=== PATIENT | female | born 1945 | race Caucasian/White ===

== ENCOUNTER 2019-09-16 14:46 | Outpatient (CLI) | payer MEDICARE, OTHER, SELFPAY ==
--- NOTE | ~2019-09-16 | DEXA_ITS ---
Bone Density Report Name: Suzan dHez Age: 74 Sex: Female Ethnicity: White Date of : 1945 Indication: postmenopausal; height loss; prior fracture; cancer; Referring Provider: WILMAR CULLEN Study: Bone densitometry was performed. Exam Date: September 16, 2019 Accession number: [id number] Bone Density: Region BMD T-score Z-score Classification AP Spine (L1-L4) 1.052 0.0 2.5 Normal World Health Organization criteria for BMD impression classify patients as: Normal (T-score at or above -1.0), Osteopenia (T-score between -1.0 and -2.5), or Osteoporosis (T-score at or below -2.5). Previous Exams: Region Exam Age BMD T-score BMD Change BMD Change Date g/cm2 vs Baseline vs Previous AP Spine(L1-L4) 09/16/2019 74 1.052 0.0 -0.040(-3.7%)* -0.040(-3.7%)* 08/23/2015 70 1.092 0.4 *Denotes significance at 95% confidence level, LSC for AP Spine = 0.022 g/cm2 Clinical Information Provided by Patient: Has had a low trauma fracture Has used the following medications: Calcium Has the following medical conditions: Cancer Patient maximum height was 67.5 Menopause Age: 48 Drinks caffeinated beverages Onset of menses at age 10 Number of children 5 Impression: The patient has normal bone mass. The patient has risk factors, including: previous fracture. The BMD for the AP Spine(L1-L4) decreased, changing by -3.7% since the last DXA exam. Discussion: LOW RISK OF FRACTURE; BONE DENSITY IS WELL ABOVE THE MINIMUM DESIRABLE LEVEL AND ABOVE AVERAGE FOR AGE AND SEX AT ALL SKELETAL SITES TESTED. This person's bone density is above expected limits for age and sex. This is rarely clinically significant, but should be pursued if there are significant musculoskeletal complaints. The patient should follow a healthful lifestyle (good nutrition with adequate calcium and vitamin D, and appropriate weight-bearing exercise). Follow-Up: Consider repeating this study in 3 to 4 years to reassess this patient's status, or sooner if there is some new clinical indication. Reported by: SAMANTHA on 09/16/2019 3:45:00 PM. Reviewed, dictated and finalized at location AShelli CLARK
--- NOTE | ~2019-09-16 | MM_ITS ---
EXAMINATION: MM screening sveta LT w otto HISTORY: Screening mammogram TECHNIQUE: Craniocaudal and mediolateral oblique 3-D tomosynthesis images were obtained and synthetic 2-D images were generated. CAD analysis was submitted and interpreted. COMPARISON: Comparison to multiple prior studies sequentially, with oldest reviewed study dated 05/16. BREAST PARENCHYMAL COMPOSITION: There are scattered areas of fibroglandular density. FINDINGS: There is no evidence of suspicious mass, calcification, or architectural distortion to sugg est malignancy in either breast. There has been no suspicious interval change. IMPRESSION: 1. No mammographic evidence of malignancy. 2. Recommend routine screening mammography in one year. BI-RADS Category 1: Negative Reviewed, dictated and finalized at location A. THEATER EXPERT
== END 2019-09-16 14:47 | disposition home or self-care (01) ==
PROVIDERS: PCP Emergency Medicine; Visit Provider Emergency Medicine
DX: Z12.31 Encounter for screening mammogram for malignant neoplasm of breast (principal); Z78.0 Asymptomatic menopausal state
CPT/HCPCS: 77063; 77067; 77080

== ENCOUNTER 2020-01-11 13:30 | Emergency (ER) | payer MEDICARE, OTHER, SELFPAY ==
[2020-01-11 13:45] VITALS: BP 138/80; PULSE 65; RESP 16; TEMP 36.5; O2SAT 98
--- NOTE | 2020-01-11 13:52 | ED.FEMALEGU ---
HPI - Female Genitourinary General Chief complaint: Urogenital-Female Stated complaint: possible uti Time Seen by Provider: 01/11/20 13:56 Source: patient and RN notes reviewed Mode of arrival: ambulatory Limitations: no limitations History of Present Illness HPI Narrative: This is a 74 years old female presents to the office for an evaluation of possible UTI. Onset this morning. Symptoms include urinary frequency, pain, and tinge of blood when she wiped. Denies fever, vomiting, back pain, or vaginal discharge. Symptoms reminiscent her previous UTI she had about 4 to 5 years ago. She admitted drinking lots of coffee. Related Data Home Medications Medication Instructions Recorded Confirmed latanoprost 0.005 % eye drops See Rx Instructions EACH EYE DAILY 08/24/19 01/11/20 Allergies Allergy/AdvReac Type Severity Reaction Status Date / Time No Known Allergies Allergy Verified 01/11/20 13:36 Review of Systems Review of Systems: Narrative: CONSTITUTIONAL: Denies fever or feeling ill CARDIOVASCULAR: Denies chest pain RESPIRATORY: Denies dyspnea, cough GASTROINTESTINAL: Denies abdominal pain, nausea, vomiting GENITOURINARY:Denies vaginal discharge SKIN: Denies rash MUSCULOSKELETAL: Denies acute back pain NEUROLOGIC: Denies lightheaded All other systems reviewed are negative, except as documented in HPI. 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 There is no relevant family history pertinent to the presenting complaint. Exam Narrative: Exam Narrative: GENERAL: This is a well-nourished, well-developed patient, in no apparent distress. CARDIOVASCULAR: Regular rate and rhythm without murmurs, gallops, or rubs. RESPIRATORY: Clear to auscultation. Breath sounds equal bilaterally. No wheezes, rales, or rhonchi. GASTROINTESTINAL: Abdomen soft, non-tender, nondistended. Bowel sounds are active. No hepato-splenomegaly, or palpable masses. No guarding. SKIN: warm, intact with no suspicious lesions or rash, good texture and turgor. NEURO: awake, alert, and oriented to person, place and time. There were no obvious focal neurologic abnormalities. Steady gait BACK: No flank tenderness. [place] Coma Scale Eye Opening: Spontaneous 4 [place] Coma Scale Motor: Obeys Commands 6 [place] Coma Scale Verbal: Oriented 5 MDM - Female Genitourinary MDM Narrative Medical decision making narrative: Discharge instructions reviewed with patient, as well as provided in writing per nursing staff. The instructions also include specific and strict return/GO TO THE ER as well as f/u information. All questions have been answered, and the patient deny any further questions with discharge and discharge plan. Differential Diagnosis Differential diagnosis: Likely urinary tract infection, cervicitis, vaginitis and cystitis Lab Data Attestation: I reviewed the patient's lab results. Critical Care Time Critical Care Time Critical Care Time: No Discharge Plan Discharge Clinical Impression: Cystitis Patient Disposition: Home, Self-Care Condition: Stable
== END 2020-01-11 14:20 | disposition home or self-care (01) ==
PROVIDERS: Emergency Provider Nurse Practitioner; PCP Emergency Medicine
DX: N30.90 Cystitis, unspecified without hematuria (principal); E78.5 Hyperlipidemia, unspecified; Z85.3 Personal history of malignant neoplasm of breast; Z85.828 Personal history of other malignant neoplasm of skin; Z96.643 Presence of artificial hip joint, bilateral
CPT/HCPCS: 81003; 87086; 99213; G0463

== ENCOUNTER 2021-03-22 06:53 | Outpatient (CLI) | payer MEDICARE, OTHER, SELFPAY ==
--- NOTE | 2021-03-22 | ECG_ITS ---
Measurements Intervals [place] Rate: 70 P: 76 MA: 212 QRS: 36 QRSD: 96 T: 51 QT: 388 QTc: 421 Interpretive Statements SINUS RHYTHM WITH FIRST DEGREE AV BLOCK POSSIBLE LEFT ATRIAL ENLARGEMENT DELAYED PRECORDIAL R/S TRANSITION ABNORMAL ECG Electronically Signed On 03-22-2021 9:00:20 CDT by Imer Wright D.O.
--- NOTE | ~2021-03-22 | CT_ITS ---
EXAMINATION: CT LE RT wo con DATE: 03/22/2021 08:05 INDICATION: Unilateral primary osteoarthritis, right knee. TECHNIQUE: Computed tomography (CT) of the right lower limb was performed without intravenous contras t. Automated exposure control and iterative reconstruction technique were employed. The dose-length p roduct was 1786.80 mGy-cm. COMPARISON: Right knee radiographs 12/30/2020 FINDINGS: There is a total right hip arthroplasty in near-anatomic alignment. No periprosthetic lucen cy to suggest loosening or infection. No fracture. Right knee demonstrates severe osteoarthritis of l ateral compartment, mild osteoarthritis of medial compartment, and moderate osteoarthritis of patello femoral compartment. There is a small knee joint effusion. There is a moderate-sized Hernandez's cyst. IMPRESSION: 1. Severe right knee osteoarthritis. 2. Small right knee joint effusion. 3. Moderate-sized right-sided Hernandez's cyst. 4. Total right hip arthroplasty in near-anatomic alignment. Reviewed, dictated and finalized at location A.
[2021-03-22 08:32] LABS: Hematocrit 39.6 % (37.0-47.0); Hemoglobin 12.9 g/dL (12.0-15.0)
[2021-03-22 08:42] LABS: Albumin Level 4.2 g/dL (3.5-5.1); Estimated Glomerular Filt Rate > 60; Glucose 84 mg/dL (65-110)
[2021-03-22 09:40] LABS: Urine Cotinine NEGATIVE
[2021-03-22 11:57] LABS: Hemoglobin A1C 5.2 % (<5.7)
== END 2021-03-22 06:54 | disposition home or self-care (01) ==
PROVIDERS: PCP Emergency Medicine; Visit Provider Orthopaedic Surgery
DX: Z01.818 Encounter for other preprocedural examination (principal); M17.11 Unilateral primary osteoarthritis, right knee; M25.461 Effusion, right knee; M71.21 Synovial cyst of popliteal space [Baker], right knee; R94.31 Abnormal electrocardiogram [ECG] [EKG]; E78.5 Hyperlipidemia, unspecified; Z96.651 Presence of right artificial knee joint; Z85.3 Personal history of malignant neoplasm of breast; Z85.828 Personal history of other malignant neoplasm of skin
CPT/HCPCS: 73700; 80307; 82040; 82565; 82947; 83036; 85014; 85018; 93005

== ENCOUNTER 2021-08-16 10:35 | Outpatient (CLI) | payer MEDICARE, OTHER, SELFPAY ==
--- NOTE | ~2021-08-16 | MM_ITS ---
EXAMINATION: MM screening sveta LT w otto HISTORY: Screening left mammogram, history of right mastectomy TECHNIQUE: Craniocaudal and mediolateral oblique 3-D tomosynthesis images were obtained and synthetic 2-D images were generated. CAD analysis was submitted and interpreted. COMPARISON: 09/16/2019, 06/20/2017, 08/17/2015 BREAST PARENCHYMAL COMPOSITION: There are scattered areas of fibroglandular density. FINDINGS: There is no evidence of suspicious mass, calcification, or architectural distortion to sugg est malignancy. There has been no suspicious interval change. IMPRESSION: 1. No mammographic evidence of malignancy. 2. Recommend routine screening mammography in one year. BI-RADS Category 1: Negative Reviewed, dictated and finalized at location A. L ROASTER
== END 2021-08-16 10:36 | disposition home or self-care (01) ==
LOC: ANHIMG 10:36
PROVIDERS: PCP Emergency Medicine; Visit Provider Emergency Medicine
DX: Z12.31 Encounter for screening mammogram for malignant neoplasm of breast (principal)
CPT/HCPCS: 77063; 77067

== ENCOUNTER 2022-08-03 07:35 | Observation (INO) | payer MEDICARE, OTHER, SELFPAY ==
--- NOTE | ~2022-08-03 | XR_ITS ---
AP and lateral views of the left hip Clinical history: Pain Findings: No acute fracture or dislocation is seen. Left hip arthroplasties in place. No hardware com plication evident. Soft tissues are unremarkable. Impression: No acute abnormality is seen. Left hip arthroplasty. Reviewed, dictated and finalized at location . LINER Impression: No acute abnormality is seen. Left hip arthroplasty.
--- NOTE | ~2022-08-03 | CT_ITS ---
EXAMINATION: CT brain wo con DATE: 08/03/2022 10:51 INDICATION: Fall. TECHNIQUE: Computed tomography (CT) of the head was performed without intravenous contrast. The mA wa s adjusted according to patient size. Iterative reconstruction technique was employed. Exam dose: 60 5.33 mGy-cm total exam DLP. COMPARISON: None FINDINGS: Basilar artery and bilateral carotid siphon internal carotid artery and middle cerebral art chad calcifications are noted. Is nonspecific diminished attenuation of the cerebral white matter, lik jose due to chronic small vessel ischemic changes. No intracranial mass lesion or hemorrhage or recent cerebrovascular accident. No midline shifts or ma ss effect. No subdural or epidural hematoma. The mastoid air cells and included paranasal sinuses are normally developed and aerated. No fracture or bone destruction of the cranial vault. IMPRESSION: No skull fracture or acute intracranial abnormality Cerebral atherosclerosis and chronic small vessel ischemic changes of the cerebral white matter Reviewed, dictated and finalized at Location A. Reviewed, dictated and finalized at location B. RO[facility] [employer] IMPRESSION: No skull fracture or acute intracranial abnormality Cerebral atherosclerosis and chronic small vessel ischemic changes of the cereb ral white matter
--- NOTE | ~2022-08-03 | CT_ITS ---
EXAMINATION: CT hip LT wo con DATE: 08/03/2022 13:27 INDICATION: Left hip pain post fall TECHNIQUE: High resolution computed tomography (CT) of the left hip was performed without intravenous contrast. Additional sagittal and coronal reconstructions were performed. Automated exposure control and iterative reconstruction technique were employed. The dose-length product was 492.74 mGy-cm. COMPARISON: 08/03/2022 FINDINGS: Left total hip arthroplasty which appears well seated in near-anatomic alignment with no periprosthet ic lucency to suggest loosening. There is a minimally displaced mildly comminuted fractures of the le ft inferior pubic ramus. There is suggestion of an additional nondisplaced fracture at the lateral as pect of the superior pubic ramus however assessment dislocation is significantly limited by streak ar tifact from the hip arthroplasty. Multiple diverticula along the visualized portion of the sigmoid co gisele without adjacent inflammatory change to suggest diverticulitis. No pathologically enlarged left p elvic or inguinal lymphadenopathy. IMPRESSION: 1. Only displaced mildly comminuted fractures along the left inferior pubic ramus. 2. Possible nondisplaced fracture at the lateral aspect of the left superior pubic ramus evaluation o f which is significantly limited by metallic streak artifact from a left total hip arthroplasty. Reviewed, dictated and finalized at location A. ON FARMER IMPRESSION: 1. Only displaced mildly comminuted fractures along the left inferior pubic lesley us. 2. Possible nondisplaced fracture at the lateral aspect of the left superior pu bic ramus evaluation of which is significantly limited by metallic streak artif act from a left total hip arthroplasty.
[2022-08-03 07:35] VITALS: BP 164/87; PULSE 70; RESP 16; TEMP 36.8; O2SAT 99
--- NOTE | 2022-08-03 09:31 | ED.FALL ---
HPI - Fall General Chief Complaint: Fall Stated Complaint: fall, left hip pain Time Seen by Provider: 08/03/22 07:38 History of Present Illness HPI Narrative: Patient is a 77-year-old female presenting after a fall. Patient states that she was walking in her house slippers when she tripped on a cord and fell onto her left hip. States that she was unable to brace her fall in time so her full weight landed on that hip. States that she did strike her head. She denies losing consciousness. No neck or back pain. States that her was able to help her get to her knees but she was unable to stand due to the severe pain so EMS was called. Patient states that she is able to lift her left leg and externally and internally rotated but weightbearing causes severe pain. She denies further injuries or complaints. No anticoagulants or antiplatelets. Related Data Home Medications Medication Instructions Recorded Confirmed latanoprost 0.005 % eye drops See Rx Instructions ophthalmic 08/24/19 08/03/22 (eye) DAILY ICaps AREDS 1 cap PO DAILY 08/03/22 08/03/22 [place]-3 Fish Oil 1 cap PO DAILY 08/03/22 08/03/22 Osteo Bi-Flex 1 cap PO DAILY 08/03/22 08/03/22 ferrous sulfate 28 mg iron tablet 14 mg PO DAILY 08/03/22 08/03/22 vit B complex with C #[id number] 1 cap PO DAILY 08/03/22 08/03/22 Allergies Allergy/AdvReac Type Severity Reaction Status Date / Time No Known Allergies Allergy Verified 03/20/22 10:44 Review of Systems Review of Systems: All systems reviewed & are unremarkable except as noted in HPI and below PMFSH Past Medical History Medical History Cancer of right breast (1989) Chronic sinusitis Exudative macular degeneration Glaucoma Hyperlipidemia Surgical History Surgical History (Updated 08/03/22 @ 16:16 by Mandy Newman PA-C) History of bilateral hip arthroplasty (2011) History of right mastectomy (1989) Status post surgical removal of 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 Family History Family History Sibling Family history of malignant neoplasm Mother Family history of congestive heart failure, Onset Age: 87 Grandparent Arthritis Other Diabetes mellitus Family history of alcoholism Social History Social History Social History: Patient drinks three cups of caffeine daily. Exercises 3-4 times per week (water aerobics). Surrogate medical decision maker: Nabil Hopson, spouse. Code status: Full code. Smoking status: Never smoker Second hand tobacco smoke exposure: No Alcohol intake: current Drinks per week: 2 Substance use: never Substance use type: does not use Lack of Transportation: No Lack of Food: Never True Current Housing: I Have Housing Concerned About Future Housing: No Difficulty Paying Gas/Electric Bills: No Difficulty Paying for Meds: No Currently Unemployed: No Education: Master's Degree or Higher Difficulty w/ Childcare or Family Care: No Additional living arrangements comments: Lives in [place] with spouse. Has 5 children. Occupation/Education: retired Spiritual care concerns: No Exam Narrative: GENERAL: Well-appearing, well-nourished, and in no acute distress. HEAD: Normocephalic, atraumatic. EYES: PERRLA and EOMI. ENT: Nares clear, no rhinorrhea or epistaxis. Mucous membranes moist. NECK: Supple. CHEST: Clear to auscultation. No respiratory distress. HEART: Regular rate and rhythm. No murmur heard. Normal peripheral pulses. ABDOMEN: Soft, nontender, nondistended, normal active bowel sounds. EXTREMITIES: Normal range of motion. No edema. DP/PT pulse 2+ bilaterally, no sensory deficits, pt able to extend/flex left hip as well as externally/internally rotate SKIN: Warm, dry, no rash. NEURO: No focal deficits. Alert and orient
[2022-08-03] MEDS: ACETAMINOPHEN 500 MG TABLET 1000 MG PO (09:35)
[2022-08-03] MEDS: IBUPROFEN 600 MG TABLET PO (09:36)
[2022-08-03 11:12] VITALS: BP 154/74; PULSE 75; RESP 18; O2SAT 97
[2022-08-03] MEDS: oxyCODONE HCL (*CRX) 5 MG TAB IR 2.5 MG PO (13:00)
[2022-08-03 13:21] LABS: Influenza A QL RT-PCR Negative (Negative); Influenza B QL RT-PCR Negative (Negative); RSV RNA, RT-PCR Negative (Negative); SARS-CoV-2 RNA PCR Negative
--- NOTE | 2022-08-03 14:00 | PM.IMHP ---
H&P: HPI History of Present Illness Date/Time: 08/03/22 14:00 Chief Complaint: Fall. Narrative: This is a very pleasant 77-year-old female who presented to the emergency department via EMS from home for evaluation after a fall. The following history is obtained from the patient. She was in her usual state of health when she went to bed last night. This morning at about 06:30 she was walking into her sun room when she incidentally tripped over the computer cord which caused her to fall hard onto her left side. She was unable to get herself up and her was not able to help her up either due to pain in the left hip area. She hit her head on a side table but there was no loss of consciousness. There were no antecedent symptoms prior to the fall. Vital signs were stable on arrival to the ED though blood pressures have been a bit high in the 150s to 160s systolic. Brain CT showed no acute fracture or intracranial abnormality. Left hip x-ray showed an intact left hip arthroplasty with no acute abnormality noted. Attempts were made to ambulate the patient with a walker however she was unable to do so given severe, aching pain in the left hip, groin, and pelvic region. A subsequent CT of the hip (limited by metallic streak artifact from left hip arthroplasty) showed a mildly displaced comminuted fracture of the left inferior pubic ramus and a possible nondisplaced fracture at the lateral aspect of the left superior pubic ramus. She is being admitted in this setting for pain control and PT/OT consult. Review of Systems Review of Systems: Twelve systems were reviewed. No fever, chills, or sweats. No recent cold or flu symptoms. She has chronic issues with her sinuses which are unchanged. No chest pain or shortness of breath. No nausea, vomiting, or diarrhea. No dysuria. Except as documented, all other systems were reviewed and are negative. [facility] Past Medical History Medical History Cancer of right breast (1989) Chronic sinusitis Exudative macular degeneration Glaucoma Hyperlipidemia Surgical History Surgical History (Updated 08/03/22 @ 16:16 by Mandy Newman PA-C) History of bilateral hip arthroplasty (2011) History of right mastectomy (1989) Status post surgical removal of 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 Family History Family History Sibling Family history of malignant neoplasm Mother Family history of congestive heart failure, Onset Age: 87 Grandparent Arthritis Other Diabetes mellitus Family history of alcoholism Social History Social History Social History: Patient drinks three cups of caffeine daily. Exercises 3-4 times per week (water aerobics). Surrogate medical decision maker: Nabil Hopson, spouse. Code status: Full code. Smoking status: Never smoker Second hand tobacco smoke exposure: No Alcohol intake: current Drinks per week: 2 Substance use: never Substance use type: does not use Lack of Transportation: No Lack of Food: Never True Current Housing: I Have Housing Concerned About Future Housing: No Difficulty Paying Gas/Electric Bills: No Difficulty Paying for Meds: No Currently Unemployed: No Education: Master's Degree or Higher Difficulty w/ Childcare or Family Care: No Additional living arrangements comments: Lives in [place] with spouse. Has 5 children. Occupation/Education: retired Spiritual care concerns: No Meds Home Medications and Allergies Home Medications Medication Instructions Recorded Confirmed Type latanoprost 0.005 % eye drops See Rx Instructions ophthalmic 08/24/19 08/03/22 History (eye) DAILY ICaps AREDS 1 cap PO DAILY 08/03/22 08/03/22 History [place]-3 Fish Oil 1 cap PO DAILY 08/03/22 08/03/22 History Osteo Bi-Flex 1 cap PO
[2022-08-03 14:03] VITALS: BP 156/85; PULSE 75; RESP 18; O2SAT 97
[2022-08-03 15:50] VITALS: BMI 27.2
--- NOTE | 2022-08-03 15:57 | PCPTNOTE ---
Pt recently admitted. Waiting on full work up and Ortho consult prior to PT evaluation. Will follow.
[2022-08-03 16:09] VITALS: BP 150/88; PULSE 78; RESP 14; TEMP 36.6; O2SAT 98
[2022-08-03 16:11] VITALS: BP 150/88; PULSE 78; RESP 14; TEMP 36.6; O2SAT 98
[2022-08-03 16:35] VITALS: BMI 29.4
[2022-08-03] MEDS: ACETAMINOPHEN 325 MG TABLET 650 MG PO (18:16)
[2022-08-03 20:47] VITALS: BP 146/78; PULSE 72; RESP 18; TEMP 36.6; O2SAT 97
[2022-08-03] MEDS: HYDROcodone/acetaminophen (*CRX) 5-325 MG TABLET 1 TAB PO (20:47)
[2022-08-04] MEDS: oxyCODONE HCL (*CRX) 2.5 MG TAB IR PO (02:54)
[2022-08-04 06:00] VITALS: BP 162/87; PULSE 80; RESP 18; TEMP 36.5; O2SAT 99
[2022-08-04 07:01] LABS: Anion Gap 3 mmol/L (8-16); Blood Urea Nitrogen 21 mg/dL (7-17); Calcium 8.4 mg/dL (8.4-10.2); Carbon Dioxide 27 mmol/L (22-30); Chloride 108 mmol/L (98-107); Estimated CRCL calculation 72 ml/min; Estimated Glomerular Filt Rate > 60; Glucose 100 mg/dL (65-110); Potassium 3.4 mmol/L (3.4-5.0); Sodium 138 mmol/L (137-145)
[2022-08-04 08:28] VITALS: O2SAT 92
[2022-08-04] MEDS: ENOXAPARIN 40 MG/0.4 ML SYRINGE SUB-Q (08:48)
[2022-08-04] MEDS: OPTI-GEN TAB 1 TABLET PO (08:49)
[2022-08-04] MEDS: OMEGA 3 POLYUNSAT FATTY ACIDS 1 GM CAP PO (08:49)
[2022-08-04] MEDS: VITAMIN B COMPLEX/VIT C CAPSULE 1 EACH PO (08:50)
[2022-08-04] MEDS: ACETAMINOPHEN 325 MG TABLET 650 MG PO (09:46)
--- NOTE | 2022-08-04 12:25 | PCOTNOTE ---
Awaiting ortho consult prior to OT evaluation. Will follow.
--- NOTE | 2022-08-04 13:56 | PCPTNOTE ---
Awaiting ortho consult for weight bearing status recommendations, will check on patient tomorrow.
[2022-08-04 14:00] VITALS: BP 134/78; PULSE 75; RESP 20; TEMP 36.4; O2SAT 96
--- NOTE | 2022-08-04 15:31 | PM.CNOR ---
Assessment and Plan Assessment and plan (1) Fracture of multiple pubic rami: Code(s): S32.599A - Other specified fracture of unspecified pubis, initial encounter for closed fracture Status: Acute Assessment and Plan: patient is a 77-year-old female who fell hard onto her left side yesterday had severe groin pain medially and could not bear weight was brought to the emergency room had x-rays obtained which showed left hip replacement which looks fine. She has a history of bilateral hip replacements approximately 10 years ago which had been doing fine. CT scan the left hip demonstrated minimally displaced fractures of inferior and superior pubic rami on the left. No evidence of periprosthetic fracture at the left proximal femur or acetabulum. Components look well fixed and radiographically everything looks fine. She is alert and oriented and is sitting up on the side of bed. She was admitted because she had too much pain to ambulate. She continues to complain of severe pain when she tries to move the leg around or tries to turn with her weight on left leg. She has Tylenol [place] and oxycodone ordered at her last pain medication of any of these was 6:00 p.m. yesterday almost 24 hours ago. A ask her how much pain she has in at rest she has no pain so she does not receive any p.r.n. medication. I have discontinued the p.r.n. options and have ordered scheduled Tylenol 1000 mg q.6 hours and oxycodone 5 mg q.6 hours to be given together and she will notify the nurse if this is not give her adequate pain relief and she can refuse it if she feels it is too strong and could ask for a milder dose. We institute anti constipation medication. She has no personal or family history of DVT she is on Lovenox 40 mg daily. Patient states she has history of osteopenia but does not take calcium supplementation for vitamin-D currently. We will check a 25 hydroxy vitamin-D level and supplement at this if it is low and I have recommended that she start taking a calcium +D tablet or other formulation twice daily pin take this for life. Her last bone density was 5 years ago I recommend repeating this on an outpatient basis. She would like to go home. She realizes that she will need to be able to transfer from sitting to standing and be able to walk several steps with a walker and we will have her be 50% weight-bearing on the left and when she is able to accomplish these goals I think she can go home with her fairly easily. She seems otherwise very able bodied and quite alert and oriented. We will see how the pain medication controls her symptoms and see how she progresses over the next 1-2 days. If she is unable to transfer with minimal assist and she may need to be placed in a rehab facility for a period of time until she has a little bit more fracture healing and associated improved comfort allowing her to transfer independently enough that she can be at home. I have reviewed her plain x-rays and her CT scan personally. The total hip replacement is without radiographic complication. 50 minutes were spent in total care of this patient with the majority of this time spent in [id number] discussion with patient and her . 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 Family History Family History Sibling Family history of malignant neoplasm Mother Family history of kamlesh
[2022-08-04] MEDS: oxyCODONE HCL (*CRX) 5 MG TAB IR PO ×2 (16:13→21:35)
[2022-08-04] MEDS: ACETAMINOPHEN 500 MG TABLET 1000 MG PO ×2 (16:13→21:35)
--- NOTE | 2022-08-04 16:14 | PM.IMPN ---
Progress Note: A&P Assessment and Plan (1) Fall from ground level: Code(s): W18.30XA - Fall on same level, unspecified, initial encounter Status: Acute Assessment and Plan: Mechanical fall (pt tripped over a computer cord). Patient denies antecedent symptoms prior to the fall. Implement fall precautions (2) Fracture of left inferior pubic ramus: Code(s): S32.592A - Other specified fracture of left pubis, initial encounter for closed fracture Status: Acute Assessment and Plan: CT shows a displaced mildly comminuted fracture along the left inferior pubic ramus and possible nondisplaced fracture of the lateral aspect of the left superior pubic ramus. Patient does have a history of bilateral hip replacements, no evidence of periprosthetic fracture. appreciate orthopedic surgery recommendations. Continue with 50% weight-bearing on the left. Analgesics as needed. Appreciate PT / OT evals. May need to consider rehab prior to return home. (3) Elevated blood pressure reading: Code(s): R03.0 - Elevated blood-pressure reading, without diagnosis of hypertension Status: Acute Assessment and Plan: Blood pressure is elevated on admission, likely due to pain. Improving at this time with last BP 134/78. Patient is not on antihypertensives. Monitor BP trends (4) Osteopenia: Code(s): M85.80 - Other specified disorders of bone density and structure, unspecified site Status: Acute Assessment and Plan: Patient with history of osteopenia. Vitamin-D levels are pending. Recommend outpatient DEXA (5) Glaucoma: Code(s): H40.9 - Unspecified glaucoma Status: Chronic Assessment and Plan: No acute issues. Continue latanoprost. Subjective Date/time seen: 08/04/22 16:14 Interval history: Date of service: 08/04/2022 Suzan Hopson is a 77-year-old female with a history of breast cancer, macular degeneration, glaucoma, hyperlipidemia who is seen in follow-up for pubic rami fracture. She states that she is doing fairly well. When she is resting her pain is well controlled. She did attempt to get out of bed and pivot to the bedside commode. States that she was not able to do this due to a heavy feeling in her left leg and pain. she feels that if she could stand up straight and have the commode placed behind her she would have better luck than with trying to put it. She is fairly comfortable with standing but when turning her pain increased to 7-8/10. When she is at rest, she has no pain. She denies any additional concerns. No dizziness or lightheadedness. No shortness of breath, cough, or chest pain. States she had of loose bowel movement yesterday but no stools today. Denies urinary symptoms. Endorses somewhat poor appetite but is eating. Review of Systems Review of Systems: All systems reviewed & are unremarkable except as noted in HPI and below Exam Narrative: General: Well-nourished well-appearing 77-year-old female, sitting up in bed, comfortable, NARD Neuro: awake, alert and oriented x4, speech clear, no focal neuro deficits noted HEENMT: normocephalic, atraumatic, EOMI, sclerae anicteric Respiratory: clear to auscultation bilaterally, nonlabored breathing Cardio: regular rate, regular rhythm with S1-S2 Abdomen: nondistended, normoactive bowel sounds, soft, nontender to palpation Extremities: left hip is nontender to palpation, BLE without edema, erythema, or tenderness to palpation, DP pulses 2+ bilaterally, able to wiggle toes bilaterally, sensation intact Skin: no rashes or lesions, warm and dry Psych: appropriate mood and affect, judgment and insight intact Objective Data Vital Signs Vital Signs: Vital Signs - 24 hr 08/03/22 17:52 08/03/22 20:47 08/03/22 20:00 Temperature 97.8 F Pulse Rate 72 Respiratory Rate 18 Blood Pressure 146/78 H Pulse Oximetry 97 Oxygen Delivery Room Air Room Air
[2022-08-04] MEDS: SENNA/DOCUSATE SODIUM TABLET 2 TAB PO (16:37)
[2022-08-04] MEDS: LATANOPROST 0.005% OP SOLN 2.5 ML BTL 1 DROP EACH EYE (21:35)
[2022-08-04 22:00] VITALS: BP 140/89; PULSE 74; RESP 18; TEMP 36.8; O2SAT 96
[2022-08-05] MEDS: ACETAMINOPHEN 500 MG TABLET 1000 MG PO ×4 (02:46→20:40)
[2022-08-05] MEDS: oxyCODONE HCL (*CRX) 5 MG TAB IR PO ×4 (02:46→20:40)
[2022-08-05 06:00] VITALS: BP 141/79; PULSE 78; RESP 18; TEMP 36.5; O2SAT 96
[2022-08-05 06:38] LABS: Hematocrit 29.2 % (37.0-47.0); Hemoglobin 9.6 g/dL (12.0-15.0); Mean Corpuscular HGB Conc 32.9 g/dl (32-36); Mean Corpuscular Volume 94.2 fl (80-100); Mean Platelet Volume 8.9 fl (7.4-10.4); Platelet Count Result 139 k/mm3 (150-375); Red Cell Distribution Width 15.9 % (11.5-14.5); White Blood Count 5.1 K/mm3 (4.5-10.0)
[2022-08-05 06:58] LABS: Anion Gap 1 mmol/L (8-16); Blood Urea Nitrogen 21 mg/dL (7-17); Calcium 8.4 mg/dL (8.4-10.2); Carbon Dioxide 29 mmol/L (22-30); Chloride 107 mmol/L (98-107); Estimated CRCL calculation 72 ml/min; Estimated Glomerular Filt Rate > 60; Glucose 96 mg/dL (65-110); Potassium 3.4 mmol/L (3.4-5.0); Sodium 137 mmol/L (137-145)
[2022-08-05 07:15] LABS: Vitamin D 25 Hydroxy 18.9 ng/mL
--- NOTE | 2022-08-05 07:34 | PM.CNOR ---
Assessment and Plan Assessment and plan (1) Fracture of multiple pubic rami: Code(s): S32.599A - Other specified fracture of unspecified pubis, initial encounter for closed fracture Status: Acute Assessment and Plan: Patient is hospital day 3. Today following left inferior superior pubic ramus fractures. She was able to get up go to the bathroom yesterday. She wants to work with physical therapy today and shoot for hopefully returning home tomorrow. I will leave a prescription for the oxycodone the chart. Would recommend she continue with the Lovenox injections. Four weeks was seemed to be a reasonable time frame Her 25 hydroxy vitamin-D was extremely low at 18.9. We will supplement this with 33343 units ergocalciferol. Will anticipate home health initially. History of Present Illness HPI Consult date: 08/05/22 Chief complaint: Hip Pain PMFSH Past Medical History Medical History Cancer of right breast (1989) Chronic sinusitis Exudative macular degeneration Glaucoma Hyperlipidemia Surgical History Surgical History (Updated 08/03/22 @ 16:16 by Mandy Newman PA-C) History of bilateral hip arthroplasty (2011) History of right mastectomy (1989) Status post surgical removal of 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 Family History Family History Sibling Family history of malignant neoplasm Mother Family history of congestive heart failure, Onset Age: 87 Grandparent Arthritis Other Diabetes mellitus Family history of alcoholism Social History Social History Social History: Patient drinks three cups of caffeine daily. Exercises 3-4 times per week (water aerobics). Surrogate medical decision maker: Nabil Mark Anthony, spouse. Code status: Full code. Smoking status: Never smoker Second hand tobacco smoke exposure: No Alcohol intake: current Drinks per week: 2 Substance use: never Substance use type: does not use Lack of Transportation: No Lack of Food: Never True Current Housing: I Have Housing Concerned About Future Housing: No Difficulty Paying Gas/Electric Bills: No Difficulty Paying for Meds: No Currently Unemployed: No Education: Master's Degree or Higher Difficulty w/ Childcare or Family Care: No Additional living arrangements comments: Lives in [place] with spouse. Has 5 children. Occupation/Education: retired Spiritual care concerns: No Meds Home Medications and Allergies Home Medications Medication Instructions Recorded Confirmed Type latanoprost 0.005 % eye drops See Rx Instructions ophthalmic 08/24/19 08/03/22 History (eye) DAILY ICaps AREDS 1 cap PO DAILY 08/03/22 08/03/22 History [place]-3 Fish Oil 1 cap PO DAILY 08/03/22 08/03/22 History Osteo Bi-Flex 1 cap PO DAILY 08/03/22 08/03/22 History ferrous sulfate 28 mg iron tablet 14 mg PO DAILY 08/03/22 08/03/22 History vit B complex with C #[id number] 1 cap PO DAILY 08/03/22 08/03/22 History Allergies Allergy/AdvReac Type Severity Reaction Status Date / Time No Known Allergies Allergy Verified 03/20/22 10:44 Vital Signs Vital Signs - 24 hr 08/04/22 08:28 08/04/22 08:15 08/04/22 14:00 Temperature 36.4 C Pulse Rate 75 Respiratory Rate 20 Blood Pressure 134/78 Pulse Oximetry 92 96 Oxygen Delivery Room Air Room Air 08/04/22 20:00 08/04/22 22:00 Temperature 36.8 C Pulse Rate 74 Respiratory Rate 18 Blood Pressure 140/89 Pulse Oximetry 96 Oxygen Delivery Room Air Results Labs 08/05/22 06:13 08/05/22 06:13 Labs: Abnormal lab results 08/05/22 08/05/22 Range/Units 06:13 06:13 RBC 3.10 L (4.2-5.4) M/mm3 Hgb 9.6 L D (12.0-15.0) g/dL Hct 29.2 L (37.0-47.0) % RDW 15.9 H (11.5-14.5) % Plt Cou
[2022-08-05] MEDS: polyethylene glycoL 3350 17 GM POWD.PACK PO (08:37)
[2022-08-05] MEDS: OMEGA 3 POLYUNSAT FATTY ACIDS 1 GM CAP PO (08:37)
[2022-08-05] MEDS: OPTI-GEN TAB 1 TABLET PO (08:37)
[2022-08-05] MEDS: SENNA/DOCUSATE SODIUM TABLET 2 TAB PO ×2 (08:37→15:58)
[2022-08-05] MEDS: ERGOCALCIFEROL 50,000 UNITS CAPSULE 50000 UNITS PO (08:38)
[2022-08-05] MEDS: VITAMIN B COMPLEX/VIT C CAPSULE 1 EACH PO (08:38)
[2022-08-05] MEDS: ENOXAPARIN 40 MG/0.4 ML SYRINGE SUB-Q (08:38)
[2022-08-05 14:00] VITALS: BP 129/70; PULSE 76; RESP 20; TEMP 36.3; O2SAT 97
--- NOTE | 2022-08-05 14:38 | PM.IMPN ---
Progress Note: A&P Assessment and Plan (1) Fall from ground level: Code(s): W18.30XA - Fall on same level, unspecified, initial encounter Status: Acute Assessment and Plan: Mechanical fall (pt tripped over a computer cord). Patient denies antecedent symptoms prior to the fall. She did hit her head but head CT on presentation showed no acute findings.Implement fall precautions (2) Fracture of left inferior pubic ramus: Code(s): S32.592A - Other specified fracture of left pubis, initial encounter for closed fracture Status: Acute Assessment and Plan: CT shows a displaced mildly comminuted fracture along the left inferior pubic ramus and possible nondisplaced fracture of the lateral aspect of the left superior pubic ramus. Patient does have a history of bilateral hip replacements, no evidence of periprosthetic fracture. appreciate orthopedic surgery recommendations. Continue with 50% weight-bearing on the left. Analgesics as needed. Appreciate PT / OT evals. Planning for home health following discharge, hopeful tomorrow if continued improvement (3) Elevated blood pressure reading: Code(s): R03.0 - Elevated blood-pressure reading, without diagnosis of hypertension Status: Acute Assessment and Plan: Blood pressure was elevated on admission, likely due to pain. Improving now with last BP 141/79. Patient is not on antihypertensives. Monitor BP trends (4) Osteopenia: Code(s): M85.80 - Other specified disorders of bone density and structure, unspecified site Status: Acute Assessment and Plan: Patient with history of osteopenia. Recommend outpatient DEXA (5) Vitamin D deficiency: Code(s): E55.9 - Vitamin D deficiency, unspecified Status: Acute Assessment and Plan: vitamin-D was found to be deficient at 18.9. She has been started on 50,000 units ergocalciferol in addition to calcium plus vitamin-D supplement (6) Glaucoma: Code(s): H40.9 - Unspecified glaucoma Status: Chronic Assessment and Plan: No acute issues. Continue latanoprost. Subjective Date/time seen: 08/05/22 14:38 Interval history: Date of service: 08/05/2022 Suzan Hopson is a 77-year-old female with a history of breast cancer, macular degeneration, glaucoma, hyperlipidemia who is seen in follow-up for pubic rami fracture. she feels that she is doing better today. At this time, she is resting in bed and she states that her pain is 0. She was able to get out of bed today with assistance and is feeling more comfortable with this. States she is just taking it very slow with her movements. She thinks that she is more worried about anticipating the pain when she bears weight within the pain itself. Reports having a bowel movement yesterday. Denies a episodes of dysuria or frequency. Tolerating her diet. Hopeful to discharge home tomorrow. Review of Systems Review of Systems: All systems reviewed & are unremarkable except as noted in HPI and below Exam Narrative: General: Well-nourished well-appearing 77-year-old female, sitting up in bed, comfortable, NARD Neuro: awake, alert and oriented x4, speech clear, no focal neuro deficits noted HEENMT: normocephalic, atraumatic, EOMI, sclerae anicteric Respiratory: clear to auscultation bilaterally, nonlabored breathing Cardio: regular rate, regular rhythm with S1-S2 Abdomen: nondistended, normoactive bowel sounds, soft, nontender to palpation Extremities: left hip is nontender to palpation, BLE without edema, erythema, or tenderness to palpation Skin: no rashes or lesions, warm and dry Psych: appropriate mood and affect, judgment and insight intact Objective Data Vital Signs Vital Signs: Vital Signs - 24 hr 08/04/22 20:00 08/04/22 22:00 08/05/22 06:00 Temperature 98.3 F 97.7 F Pulse Rate 74 78 Respiratory Rate 18 18 Blood Pressure 140/89 141/79 H Puls
[2022-08-05] MEDS: LATANOPROST 0.005% OP SOLN 2.5 ML BTL 1 DROP EACH EYE (20:40)
[2022-08-05 22:21] VITALS: BP 149/84; PULSE 84; RESP 16; TEMP 36.9; O2SAT 93
[2022-08-06] MEDS: oxyCODONE HCL (*CRX) 5 MG TAB IR PO ×2 (03:15→10:11)
[2022-08-06] MEDS: ACETAMINOPHEN 500 MG TABLET 1000 MG PO ×2 (03:15→10:11)
[2022-08-06 06:00] VITALS: BP 132/74; PULSE 87; RESP 16; TEMP 36.8; O2SAT 97
[2022-08-06 07:51] LABS: Anion Gap 4 mmol/L (8-16); Blood Urea Nitrogen 16 mg/dL (7-17); Calcium 8.5 mg/dL (8.4-10.2); Carbon Dioxide 27 mmol/L (22-30); Chloride 105 mmol/L (98-107); Estimated CRCL calculation 71 ml/min; Estimated Glomerular Filt Rate > 60; Glucose 98 mg/dL (65-110); Potassium 3.2 mmol/L (3.4-5.0); Sodium 136 mmol/L (137-145)
[2022-08-06 07:59] LABS: Hemoglobin 9.9 g/dL (12.0-15.0); Mean Corpuscular Hemoglobin 31.3 pg (26-34); Mean Corpuscular Volume 94.9 fl (80-100); Mean Platelet Volume 9.2 fl (7.4-10.4); Platelet Count Result 140 k/mm3 (150-375); Red Blood Count 3.16 M/mm3 (4.2-5.4); Red Cell Distribution Width 15.8 % (11.5-14.5); White Blood Count 5.4 K/mm3 (4.5-10.0)
[2022-08-06] MEDS: VITAMIN B COMPLEX/VIT C CAPSULE 1 EACH PO (10:12)
[2022-08-06] MEDS: SENNA/DOCUSATE SODIUM TABLET 2 TAB PO (10:12)
[2022-08-06] MEDS: OMEGA 3 POLYUNSAT FATTY ACIDS 1 GM CAP PO (10:12)
[2022-08-06] MEDS: ENOXAPARIN 40 MG/0.4 ML SYRINGE SUB-Q (10:13)
[2022-08-06] MEDS: OPTI-GEN TAB 1 TABLET PO (10:14)
--- NOTE | 2022-08-06 12:42 | PM.DS ---
DS: Admitting Diagnosis Discharge Date 08/06/2022 Admitting Diagnosis Pubic ramus fracture DS: Discharge Diagnosis Discharge Diagnosis (1) Fall from ground level: Code(s): W18.30XA - Fall on same level, unspecified, initial encounter Status: Acute Assessment and Plan: Mechanical fall (pt tripped over a computer cord). Patient denies antecedent symptoms prior to the fall. She did hit her head but head CT on presentation showed no acute findings. Fall precautions implemented (2) Fracture of left inferior pubic ramus: Code(s): S32.592A - Other specified fracture of left pubis, initial encounter for closed fracture Status: Acute Assessment and Plan: CT shows a displaced mildly comminuted fracture along the left inferior pubic ramus and possible nondisplaced fracture of the lateral aspect of the left superior pubic ramus. Patient does have a history of bilateral hip replacements, no evidence of periprosthetic fracture. Managed by Orthopedic surgery. She participated in PT/OT during admission. She will continue therapy with home health. Continue with 50% weight-bearing on the left. She will follow-up with Orthopedic surgery as an outpatient (3) Elevated blood pressure reading: Code(s): R03.0 - Elevated blood-pressure reading, without diagnosis of hypertension Status: Acute Assessment and Plan: Blood pressure was elevated on admission, likely due to pain. Improved with adequate pain control. Patient is not on antihypertensives and blood pressures remained stable (4) Osteopenia: Code(s): M85.80 - Other specified disorders of bone density and structure, unspecified site Status: Acute Assessment and Plan: Patient with history of osteopenia. Recommend outpatient DEXA (5) Vitamin D deficiency: Code(s): E55.9 - Vitamin D deficiency, unspecified Status: Acute Assessment and Plan: Vitamin-D was found to be deficient at 18.9. She has been started on 50,000 units ergocalciferol in addition to calcium plus vitamin-D supplement (6) Glaucoma: Code(s): H40.9 - Unspecified glaucoma Status: Chronic Assessment and Plan: No acute issues. Continue latanoprost. DS: Summary Hospital Course Hospital Course: Date of admission: 08/03/2022 Date of discharge: 08/06/2022 Suzan Hopson is a 77-year-old female with a history of breast cancer, macular degeneration, glaucoma, hyperlipidemia who presented to the emergency department on 08/03/2022 after suffering a mechanical fall at home. She did strike her head but majority of her weight landed onto her left hip. On presentation to the ED, her vital signs were stable, she was afebrile, laboratory workup was unremarkable, COVID a influenza was negative, head CT showed no acute findings, and hip CT revealed mildly comminuted fractures of the left inferior pubic ramus. She was admitted to the hospitalist service for further evaluation and management and was seen in consultation by Orthopedic surgery. Please see above for further details. Patient participated in PT/OT and will continue therapy with home health. Her pain was well controlled. She was started on its vitamin-D supplementation given a vitamin-D deficiency. Patient was feeling overall improved and felt comfortable with plans for discharge home. Discussed with the patient worrisome signs and symptoms for which to return and she was educated on her medications. She was discharged in hemodynamically stable condition on 08/06/2022. Time Spent with Patient Time attestation: Total time spent providing and/or coordinating discharge services: 45 minutes Time spent: Greater than 30 minutes Exam Narrative: General: Well-nourished well-appearing 77-year-old female, sitting up in bed, comfortable, NARD Neuro: awake, alert and oriented x4, speech clear, no focal neuro deficits noted HEENMT: normocephalic, atr
--- NOTE | 2022-08-06 12:42 | PM.PNORT ---
Subjective Subjective Date/Time Seen: 08/06/22 12:42 Hospital day 4 patient is alert. Afebrile vital signs are stable. Potassium is 3.2 this morning. Overall pain is well controlled. Patient is doing well with physical therapy and is anxious to be discharged. Discharge instructions have been filled out. Patient should be on Lovenox for 6 weeks While she is partial weight-bearing for the fracture. Objective Data Vital Signs Vital Signs: Vital Signs - 24 hr 08/05/22 14:00 08/05/22 22:21 08/06/22 06:00 Temperature 36.3 C L 36.9 C 36.8 C Pulse Rate 76 84 87 Respiratory Rate 20 16 16 Blood Pressure 129/70 149/84 H 132/74 Pulse Oximetry 97 93 97 Oxygen Delivery 08/06/22 08:00 Temperature Pulse Rate Respiratory Rate Blood Pressure Pulse Oximetry Oxygen Delivery Room Air Intake/Output Intake/Output: Intake & Output 08/03/22 08/04/22 08/05/22 08/06/22 23:59 23:59 23:59 23:59 Intake Total 100 960 960 300 Output Total 850 1300 300 Balance 100 110 -340 0 Meds/Results Medications: Active Medications Generic Name Dose Route Start Last Admin Trade Name Freq PRN Reason Stop Dose Admin Acetaminophen 1,000 mg 08/04/22 15:00 08/06/22 10:11 Acetaminophen 500 Mg Tablet PO 1,000 mg Q6H TANI Administration Calcium Citrate 1 tablet 08/04/22 17:00 08/06/22 10:13 Calcium Citrate 315 Mg/Vitamin D 250 Units Tab PO 1 tablet BID TANI Administration Enoxaparin Sodium 40 mg 08/04/22 09:00 08/06/22 10:13 Enoxaparin 40 Mg/0.4 Ml Syringe SUB-Q 40 mg DAILY TANI Administration Ergocalciferol 50,000 units 08/05/22 09:00 08/05/22 08:38 Ergocalciferol 50,000 Units Capsule PO 50,000 units WEEKLY TANI Administration Fish Oil 1 gm 08/04/22 09:00 08/06/22 10:12 [place] 3 Polyunsat Fatty Acids 1 Gm Cap PO 09/03/22 08:59 1 gm DAILY TANI Administration Latanoprost 1 drop 08/04/22 21:00 08/05/22 20:40 Latanoprost 0.005% Op Soln 2.5 Ml Btl EACH EYE 1 drop HS TANI Administration Miscellaneous Information 1 each 08/03/22 00:01 Ferrous Sulfate 14mg Is Non Formulary. Please Clarify Dose And If Corret May We Hold Whil XX 09/02/22 00:00 CLARIFY TANI Multivitamins/Minerals 1 tablet 08/04/22 09:00 08/06/22 10:14 Opti-Gen Tab PO 09/03/22 08:59 1 tablet DAILY TANI Administration Non-Formulary Medication 14 mg 08/04/22 09:00 Ferrous Sulfate PO 09/03/22 08:59 DAILY TANI Non-Formulary Medication 1 cap 08/04/22 09:00 Osteo Bi-Flex PO 09/03/22 08:59 DAILY TANI Oxycodone HCl 5 mg 08/04/22 15:00 08/06/22 10:11 Oxycodone Hcl (*Crx) 5 Mg Tab Ir PO 5 mg Q6H TANI Administration Oxycodone HCl 5 mg 08/04/22 15:41 Oxycodone Hcl (*Crx) 5 Mg Tab Ir PO Q6H PRN Pain Rated 7-10 Polyethylene Glycol 17 gm 08/05/22 09:00 08/06/22 10:14 Polyethylene Glycol 3350 17 Gm Powd.Pack PO Not Given QAM TANI Senna/Docusate Sodium 2 tab 08/04/22 17:00 08/06/22 10:12 Senna/Docusate Sodium Tablet PO 2 tab BID TANI Administration Vitamin B Complex/Vitamin C 1 each 08/04/22 09:00 08/06/22 10:12 Vitamin B Complex/Vit C Capsule PO 09/03/22 08:59 1 each DAILY TANI Administration Radiology Results: ITS Impressions Hip X-Ray 08/03/22 08:50 Impression: No acute abnormality is seen. Left hip arthroplasty. Head CT 08/03/22 10:52 IMPRESSION: No skull fracture or acute intracranial abnormality Cerebral atherosclerosis and chronic small vessel ischemic changes of the cerebral white matter Hip CT 08/03/22 13:29 IMPRESSION: 1. Only displaced mildly comminuted fractures along the left inferior pubic ramus. 2. Possible nondisplaced fracture at the lateral aspect of the left superior pubic ramus evaluation of which is significantly limited by metallic streak artifact from a left total hip arthroplasty. Labs Labs: Laboratory Results - last 24 hr 08/06/22 08/06/22 07:29 07:2
== END 2022-08-06 13:59 | disposition home health service (06) ==
LOC: ANHED 08:34 → ANH3MEDSUR 14:13
PROVIDERS: Orthopaedic Surgery; Physician Assistant; Admitting Provider Family Medicine; Emergency Provider Emergency Medicine; PCP Emergency Medicine; Visit Provider Physician Assistant
DX: S32.592A Other specified fracture of left pubis, initial encounter for closed fracture (principal); S09.90XA Unspecified injury of head, initial encounter; W01.0XXA Fall on same level from slipping, tripping and stumbling without subsequent striking against object, initial encounter; Z96.643 Presence of artificial hip joint, bilateral; R03.0 Elevated blood-pressure reading, without diagnosis of hypertension; M85.80 Other specified disorders of bone density and structure, unspecified site; H35.3290 Exudative age-related macular degeneration, unspecified eye, stage unspecified; Z20.822 Contact with and (suspected) exposure to COVID-19; I70.0 Atherosclerosis of aorta; R90.82 White matter disease, unspecified; J32.9 Chronic sinusitis, unspecified; H40.9 Unspecified glaucoma; E78.5 Hyperlipidemia, unspecified; F10.90 Alcohol use, unspecified, uncomplicated; Z79.899 Other long term (current) drug therapy
CPT/HCPCS: 36415; 70450; 73502; 73700; 80048; 82306; 85027; 87637; 96372; 97161; 97165; 97530; 97535; 99285; A9270; G0378; J1650

== ENCOUNTER 2022-08-13 11:58 | Outpatient (NON) | payer MEDICARE, OTHER, SELFPAY ==
[2022-08-13 12:34] LABS: Hematocrit 28.8 % (37.0-47.0); Hemoglobin 9.4 g/dL (12.0-15.0); Mean Corpuscular HGB Conc 32.6 g/dl (32-36); Mean Corpuscular Hemoglobin 31.4 pg (26-34); Mean Corpuscular Volume 96.3 fl (80-100); Mean Platelet Volume 9.6 fl (7.4-10.4); Platelet Count Result 263 k/mm3 (150-375); Red Blood Count 2.99 M/mm3 (4.2-5.4)
== END 2022-08-13 11:59 | disposition home or self-care (01) ==
PROVIDERS: PCP Emergency Medicine; Visit Provider Physician Assistant
DX: S32.592D Other specified fracture of left pubis, subsequent encounter for fracture with routine healing (principal); E55.9 Vitamin D deficiency, unspecified; M85.80 Other specified disorders of bone density and structure, unspecified site; X58.XXXD Exposure to other specified factors, subsequent encounter; H40.9 Unspecified glaucoma
CPT/HCPCS: 85027

== ENCOUNTER 2023-01-28 13:42 | Outpatient (CLI) | payer MEDICARE, OTHER, SELFPAY ==
--- NOTE | ~2023-01-28 | DEXA_ITS ---
Bone Density Report Name: PRASHANTH EMERY Age: 77 Sex: Female Ethnicity: White Date of : 1945 Indication: postmenopausal; screening for osteoporosis; height loss; prior fracture; cancer; Referring Provider: WILMAR CULLEN Study: Bone densitometry was performed. Exam Date: January 28, 2023 Accession number: [id number] Bone Density: Region BMD T-score Z-score Classification AP Spine(L1-L4) 0.933 -1.0 1.6 Normal World Health Organization criteria for BMD impression classify patients as: Normal (T-score at or above -1.0), Osteopenia (T-score between -1.0 and -2.5), or Osteoporosis (T-score at or below -2.5). Clinical Information Provided by Patient: Has had a low trauma fracture Has used the following medications: Calcium Has the following medical conditions: Cancer Patient maximum height was 67 Menopause Age: 53 Drinks caffeinated beverages Onset of menses at age 10 Number of children 5 Impression: The patient has normal bone mass. The patient has risk factors, including: previous fracture. Discussion: BONE DENSITY IS ABOVE THE MINIMUM DESIRABLE LEVEL AT ALL SKELETAL SITES TESTED. This patient?s bone mineral density is above the minimum desirable level (T-score -1.0 or better) at all sites measured. The patient should follow a healthful lifestyle (good nutrition with adequate calcium and vitamin D, and appropriate weight-bearing exercise). Follow-Up: Consider repeating this study in 5 years or sooner if there is some new clinical indication. Reported by: GINA on 01/28/2023 2:25:00 PM. Reviewed, dictated and finalized at location [facility]
== END 2023-01-28 13:43 | disposition home or self-care (01) ==
LOC: ANHIMG 13:43
PROVIDERS: PCP Emergency Medicine; Visit Provider Emergency Medicine
DX: Z78.0 Asymptomatic menopausal state (principal)
CPT/HCPCS: 77080

== ENCOUNTER 2023-12-27 19:24 | Emergency (ER) | payer MEDICARE, OTHER, SELFPAY ==
[2023-12-27 19:30] VITALS: BP 158/104; PULSE 101; RESP 18; TEMP 37.3; O2SAT 95
--- NOTE | 2023-12-27 19:50 | ED.FEVER ---
HPI - Fever General Chief Complaint: Fever Stated Complaint: fever Time Seen by Provider: 12/27/23 19:36 Source: patient and RN notes reviewed Mode of arrival: ambulatory Limitations: no limitations History of Present Illness HPI Narrative: Patient presents today complaining of headache and fever up to 101 since yesterday with decreased appetite today. She also reports urinary frequency this morning while at water aerobics. Denies sore throat, cough, nausea, vomiting, diarrhea, abdominal pain. She currently rates her headache 7/10 and has been taking Tylenol and ibuprofen with relief. She initially was attributing her headache to her chronic sinusitis yesterday before noting that she had a fever. Related Data Home Medications Medication Instructions Recorded Confirmed latanoprost 0.005 % eye drops See Rx Instructions ophthalmic 08/24/19 12/27/23 (eye) DAILY ICaps AREDS 1 cap PO DAILY 08/03/22 12/27/23 [place]-3 Fish Oil 1 cap PO DAILY 08/03/22 12/27/23 Osteo Bi-Flex 1 cap PO DAILY 08/03/22 12/27/23 vit B complex with C #13-FA-D3 1 cap PO DAILY 08/03/22 12/27/23 cholecalciferol (vitamin D3) 50 100 mcg PO DAILY 11/27/23 12/27/23 mcg (2,000 unit) capsule Allergies Allergy/AdvReac Type Severity Reaction Status Date / Time No Known Allergies Allergy Verified 12/27/23 19:25 Review of Systems Review of Systems: CONSTITUTIONAL: Denies body aches, chills, or sweats.+ fever EYES: Denies visual changes, redness, or discharge. ENT: Denies rhinorrhea, congestion, sore throat, or otalgia. CARDIOVASCULAR: Denies chest pain, palpitations, or edema. RESPIRATORY: Denies cough or dyspnea. GASTROINTESTINAL: Denies abdominal pain, nausea, vomiting, or diarrhea.+ decreased appetite GENITOURINARY: Denies dysuria or hematuria.+ urinary frequency SKIN: Denies rash, itching, or wounds. MUSCULOSKELETAL: Denies back pain, joint pain, or myalgia. NEUROLOGIC: Denies numbness, tingling, or weakness.+ headache PSYCH: Denies depression or anxiety. 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 Family History Family History Sibling Family history of malignant neoplasm Mother Family history of congestive heart failure, Onset Age: 87 Grandparent Arthritis Other Diabetes mellitus Family history of alcoholism Social History Social History Social History: Patient drinks three cups of caffeine daily. Exercises 3-4 times per week (water aerobics). Surrogate medical decision maker: Nabil Hopson, spouse. Code status: Full code. Smoking status: Never smoker Second hand tobacco smoke exposure: No Alcohol intake: current Drinks per week: 2 Substance use: never Substance use type: does not use Do You Feel Safe in your Home?: Yes Lack of Transportation: No Lack of Food: Never True Current Housing: I Have Housing Concerned About Future Housing: No Difficulty Paying Gas/Electric Bills: No Difficulty Paying for Meds: No Currently Unemployed: No Education: Master's Degree or Higher Difficulty w/ Childcare or Family Care: No Additional living arrangements comments: Lives in [place] with spouse. Has 5 children. Occupation/Education: retired Spiritual care concerns: No Comments At time of signature, I have reviewed and agree with nursing past medical, surgical, social and family history unless otherwise noted. Please see nursing chart for furt
== END 2023-12-27 19:59 | disposition home or self-care (01) ==
PROVIDERS: Emergency Provider Nurse Practitioner; PCP Emergency Medicine
DX: N30.01 Acute cystitis with hematuria (principal); Z20.822 Contact with and (suspected) exposure to COVID-19; H40.9 Unspecified glaucoma; E78.5 Hyperlipidemia, unspecified; Z85.3 Personal history of malignant neoplasm of breast; Z90.11 Acquired absence of right breast and nipple; Z85.828 Personal history of other malignant neoplasm of skin; Z96.643 Presence of artificial hip joint, bilateral
CPT/HCPCS: 81003; 87086; 87426; 87804; 99213; G0463

== ENCOUNTER 2024-08-21 16:15 | Emergency (ER) | payer MEDICARE, OTHER, SELFPAY ==
[2024-08-21 16:29] VITALS: BP 148/90; PULSE 84; RESP 16; TEMP 37.2; O2SAT 96
--- NOTE | 2024-08-21 17:47 | ED_ITS ---
HPI - URI/Sore Throat General Chief Complaint: Upper Respiratory Infection Stated Complaint: congestion,fever,FERMIN Time Seen by Provider: 08/21/24 17:47 Source: patient, RN notes reviewed and old records reviewed Mode of arrival: ambulatory Limitations: no limitations History of Present Illness HPI Narrative: Patient presents with complaints of flu-like symptoms for 2 days. She has been taking [id number] medication with moderate relief. She reports most bothersome symptom is cough. Shee is not in any distress, no shortness of breath. Related Data Home Medications ?Medication ?Instructions ?Recorded ?Confirmed ?Last Taken ?Type latanoprost 0.005 % eye drops See Rx Instructions ophthalmic 08/24/19 08/04/24 Unknown History (eye) DAILY ICaps AREDS 1 cap PO DAILY 08/03/22 08/04/24 Unknown History [place]-3 Fish Oil 1 cap PO DAILY 08/03/22 08/04/24 Unknown History Osteo Bi-Flex 1 cap PO DAILY 08/03/22 08/04/24 Unknown History vit B complex with C #13-FA-D3 1 cap PO DAILY 08/03/22 08/04/24 Unknown History calcium citrate 200 mg PO DAILY 06/03/24 08/04/24 Unknown History cholecalciferol (vitamin D3) 25 25 mcg PO DAILY 08/04/24 08/04/24 Unknown History mcg (1,000 unit) capsule timolol maleate 0.5 % eye drops drp 08/21/24 Unknown History Allergies Allergy/AdvReac Type Severity Reaction Status Date / Time No Known Allergies Allergy Verified 08/21/24 17:03 Review of Systems Review of Systems: All systems reviewed & are unremarkable except as noted in HPI and below Constitutional: Constitutional: Reports no additional constitutional complaint s, Reports body ache(s), Reports chills, Reports fever(s), Reports headache(s) and Reports lethargy ENT: Reports system reviewed and no additional complaints, except as d ocumented, Reports nasal congestion and Reports nasal discharge Cardiovascular: Cardiovascular: Reports no additional cardiovascular complaints Respiratory: Respiratory: Reports no additional respiratory complaints and Reports cough Gastrointestinal: Gastrointestinal: Reports no additional gastrointestinal complaints PMFSH Past Medical History Medical History Sinusitis chronic, frontal Fracture of left inferior pubic ramus Compression fracture of L2 Fracture of multiple pubic rami Fracture of inferior pubic ramus Chronic sinusitis Cancer of right breast (1989) Glaucoma Exudative macular degeneration Hyperlipidemia Surgical History Surgical History Status post surgical removal of 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 History of bilateral hip arthroplasty (2011) History of right mastectomy (1989) Family History Family History Sibling Family history of malignant neoplasm Mother Family history of congestive heart failure, Onset Age: 87 Grandparent Arthritis Other Diabetes mellitus Family history of alcoholism Social History Social History Social History: Patient drinks three cups of caffeine daily. Exercises 3-4 times per week (water aerobics). Surrogate medical decision maker: Nabil Hopson, spouse. Code status: Full code. Smoking status: Never smoker Second hand tobacco smoke exposure: No Alcohol intake: current Drinks per week: 2 Substance use: never Substance use type: does not use Do You Feel Safe in your Home?: Yes Lack of Transportation: No Lack of Food: Never True Current Housing: I Have Housing Concerned About Future Housing: No Difficulty Paying Gas/Electric Bills: No Difficulty Paying for Meds: No Currently Unemployed: No Education: Master's Degree or Higher Difficulty w/ Childcare or Family Care: No Additional living arrangements comments: Lives in [place] with spouse. Has 5 children. Occupation/Education: retired Spiritual care concerns: No Comments At the time of my signature, I reviewed and agree with the nursing past medical, surgical, social, and family history. There is no relevant family history pertinent to the patient complaint. Exam Const: General: cooperative, no acute distress, alert and awake Orientation/consciousness: oriented to person, oriented to place and oriented to time HENMT: Head: normal to inspection Resp: Effort & Inspection: normal respiratory effort and able to speak in complete sentences Auscultation: clear to auscultation bilaterally, no crackles, no rales, no rhonchi and no wheezes Cardio: Palpation: normal PMI Rate: regular rate Rhythm: regular rhythm Heart sounds: S1 normal heart sound present and S2 normal heart sound present Neuro: General: oriented to person, oriented to place and oriented to time Cranial nerves: Yes CN's II-XII intact bilaterally Psych: Appearance: grossly normal Thought process: Normal thought process present Insight: Good insight present (Psych) Judgement: Good judgement present (Psych) Course Course Level of Care: Express Care Visit Vital Signs Vital signs: Vital Signs Temperature 99.0 F 08/21/24 16:29 Pulse Rate 84 08/21/24 16:29 Respiratory Rate 16 08/21/24 16:29 Blood Pressure 148/90 H 08/21/24 16:29 Pulse Oximetry 96 08/21/24 16:29 Oxygen Delivery Room Air 08/21/24 16:29 Temperature 99.0 F 08/21/24 16:29 Pulse Rate 84 08/21/24 16:29 Respiratory Rate 16 08/21/24 16:29 Blood Pressure 148/90 H 08/21/24 16:29 Pulse Oximetry 96 08/21/24 16:29 Oxygen Delivery Room Air 08/21/24 16:29 Reviewed MDM - URI/Sore Throat MDM Narrative Medical decision making narrative: Extremely reassuring physical exam. Patient encouraged to continue supportive care measures at home. Discharge instructions reviewed with patient, as well as provided in writing per nursing staff. The instructions also include specific and strict return/GO TO THE ER as well as f/u information. All questions have been answered, and the patient deny any further questions with discharge and discharge plan. Some parts of this dictation were generated by voice recognition software and may contain typographical and/or grammatical inaccuracies. Differential Diagnosis Differential diagnosis: Likely upper respiratory infection, otitis media, viral infection, bronchitis and influenza Medical Records Attestation: I reviewed the patient's medical records. Discharge Plan Discharge Clinical Impression: Influenza Patient Disposition: Home, Self-Care Condition: Stable Instructions: Antibiotic Form, Influenza (ED) Additional Instructions: Take medications as prescribed. Follow with primary care provider. Emergency department for new or worse symptoms Patient Language: Setswana Prescriptions: New albuterol sulfate [Ventolin HFA] 90 mcg/actuation HFA aerosol inhaler 2 puff inhalation QID PRN (Reason: shortness of breath or wheezing) Qty: 8.5 0RF benzonatate 200 mg capsule 200 mg PO TID PRN (Reason: cough) Qty: 30 0RF No Action timolol maleate 0.5 % drops latanoprost 0.005 % drops See Rx Instructions EACH EYE DAILY Rx Instructions: instill 1 drop ophthalmic (eye) daily into affected eye(s) in the evening calcium citrate 200 mg (950 mg) tablet 200 mg PO DAILY cholecalciferol (vitamin D3) 25 mcg (1,000 unit) capsule 25 mcg PO DAILY temazepam 15 mg capsule 15 mg PO QHS PRN (Reason: sleep) Qty: 30 0RF ICaps AREDS 1 cap PO DAILY [place]-3 Fish Oil 1 cap PO DAILY Osteo Bi-Flex 1 cap PO DAILY vit B complex with C #13-FA-D3 1 cap PO DAILY alendronate [Fosamax] 70 mg tablet 70 mg PO WEEKLY Qty: 12 2RF Follow-up/Referrals: Hansel Turner MD [Primary Care Provider] - Time of Disposition: 18:04
[2024-08-21 17:59] LABS: EDCOVIDSCREEN Negative (Negative); EDINFLUASCREEN Positive (Negative); EDINFLUBSCREEN Negative (Negative)
== END 2024-08-21 18:07 | disposition home or self-care (01) ==
PROVIDERS: Emergency Provider Nurse Practitioner Family; PCP Emergency Medicine
DX: J10.1 Influenza due to other identified influenza virus with other respiratory manifestations (principal); Z85.3 Personal history of malignant neoplasm of breast; E78.5 Hyperlipidemia, unspecified; H40.9 Unspecified glaucoma; Z96.643 Presence of artificial hip joint, bilateral; Z85.828 Personal history of other malignant neoplasm of skin; Z20.822 Contact with and (suspected) exposure to COVID-19
CPT/HCPCS: 87426; 87804; 99213; G0463